=== PATIENT | female | born 1940 | race Caucasian/White ===

== ENCOUNTER 2022-12-03 09:40 | Emergency (ER) | payer MEDICARE, MEDICAID, SELFPAY ==
[2022-12-03] VITALS (48 sets, daily range): BP systolic 150–177; BP diastolic 83–107; PULSE 111–115; RESP 16–18; TEMP 36.5; O2SAT 94–100; BMI 24.7
--- NOTE | 2022-12-03 10:59 | XRR_ITS ---
PROCEDURE INFORMATION: Exam: XR Chest Exam date and time: 12/03/2022 11:18 AM Age: 82 years old Clinical indication: Cough and dyspnea; Additional info: Dyspnea/cough TECHNIQUE: Imaging protocol: Radiologic exam of the chest. Views: 1 view. COMPARISON: No relevant prior studies available. FINDINGS: Lungs: Unremarkable. No consolidation. Pleural spaces: Unremarkable. No pleural effusion. No pneumothorax. Heart/Mediastinum: Unremarkable. No cardiomegaly. Bones/joints: Mild degenerative changes along the spine and shoulders. XR/XR chest 1V portable [id number] IMPRESSION: No acute findings.
--- NOTE | 2022-12-03 10:59 | CTR_ITS ---
PROCEDURE INFORMATION: Exam: CT Head Without Contrast Exam date and time: 12/03/2022 11:34 AM Age: 82 years old Clinical indication: Altered mental status/memory loss; Additional info: Ams/falls TECHNIQUE: Imaging protocol: Computed tomography of the head without contrast. Radiation optimization: All CT scans at this facility use at least one of these dose optimization techniques: automated exposure control; mA and/or kV adjustment per patient size (includes targeted exams where dose is matched to clinical indication); or iterative reconstruction. REPORTING DATA: Count of CT and Cardiac NM exams in prior 12 months: This patient has received 0 known CTs and 0 known cardiac nuclear medicine studies in the 12 months prior to the current study. COMPARISON: No relevant prior studies available. RADIATION DOSE METRICS: Total DLP (mGy-cm): 1126.2 FINDINGS: Brain: Diffuse cerebral atrophy, consistent with patient's age. No hemorrhage. 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 Preserved padilla-white matter differentiation. Extensive cerebral white matter hypoattenuation likely on the basis of chronic microvascular ischemic change. No mass effect. Intracranial vascular calcifications. Cerebral ventricles: Ventricles are in proportion to the degree of atrophy. Paranasal sinuses: Visualized sinuses are unremarkable. No fluid levels. Mastoid air cells: Visualized mastoid air cells are well aerated. Bones/joints: Unremarkable. No acute fracture. Soft tissues: Unremarkable. CT/CT head wo con* [id number] IMPRESSION: 1. No acute intracranial findings. 2. Chronic right occipital lobe infarct in the setting of cerebral atrophy and diffuse chronic microvascular ischemic change.
--- NOTE | 2022-12-03 11:00 | ECG_ITS ---
[facility] Test Date: 2022-12-03 Pat Name: Chantal Saldana Department: Room: Gender: Female Director Machine: : 1940 Requested By: Rosalino Marquez Order Number: [id number] Estee MD: Sonia Mansfield M.D. Measurements Intervals [place] Rate: 108 P: 35 AK: 137 QRS: -3 QRSD: 96 T: 66 QT: 339 QTc: 455 Interpretive Statements SINUS TACHYCARDIA WITH OCCASIONAL VENTRICULAR PREMATURE COMPLEXES ABNORMAL RHYTHM ECG No previous ECG available for comparison Electronically Signed On 12-03-2022 11:09:45 CDT by Sonia Mansfield M.D. [id number]
--- NOTE | 2022-12-03 11:01 | W.ED.GENADLT ---
HPI - General Adult General: Chief complaint: Altered Mental Status Stated complaint: ams Time Seen by Provider: 12/03/22 09:45 Source: patient and family Mode of arrival: ambulatory History of Present Illness: 82-year-old female presents to the emergency room with her daughter in law. She recently moved to this area to stay with the [id number] and son. She had several falls she has a lot of sundowning and's worsening last week. Not strike her head no loss conscious no complaints chest pain fever sweats chills dysuria urgency frequency cough or shortness of breath. She is complaining of some mild back discomfort in the thoracolumbar junction region. No radicular symptoms Onset (ago): minute(s) Severity: moderate Relieving factors: none Exacerbating factors: none Associated symptoms: Deny chest pain, confusion, cough, diaphoresis, decreased appetite, dyspnea, fevers/chills, headache(s), malaise, nausea, rash, palpitations, seizures, short of breath, syncope, vomiting or weakness Review of Systems Const: Denies: fever(s), chills, malaise or diaphoresis Eyes: Denies: change in vision ENMT: Denies: throat pain or ear or mastoid pain Card: Denies: chest pain, palpitations or syncope Resp: Denies: dyspnea GI: Denies: abdominal pain, nausea or vomiting : Denies: flank pain, difficulty voiding, dysuria, urinary frequency or urinary urgency Musc: Reports: back pain; Denies: neck pain or extremity pain Skin/Breast: Denies: rash Neuro: Denies: headache(s) or confusion PFS ED PFSH: Medical History (Updated 12/03/22 @ 15:33 by Rosalino Ulrich DO) Dementia Diabetes mellitus Hypertension Physical Exam Const: GENERAL APPEARANCE: cooperative and comfortable ORIENTATION/CONSCIOUSNESS: Yes awake HENMT: COMMON NORMALS: normocephalic, atraumatic and hearing grossly normal bilaterally HEAD & SCALP: normocephalic and atraumatic Resp: COMMON NORMALS: normal respiratory effort, No retractions, No use of accessory muscles and clear to auscultation bilaterally AUSCULTATION: clear to auscultation bilaterally Cardio: COMMON NORMALS: regular rate, regular rhythm and No murmurs present (Cardio) RATE: regular rate RHYTHM: regular rhythm GI: COMMON NORMALS: Soft to palpation and No hepatosplenomegaly present AUSCULTATION: Yes normoactive bowel sounds PALPATION: Yes Soft to palpation, No Tenderness to palpation present (GI), No Guarding due to palpation present (GI) and Yes No hepatosplenomegaly present Extremity: COMMON NORMALS: normal to inspection, capillary refill normal, no clubbing, cyanosis or edema, no calf tenderness and no pedal edema Skin: COMMON NORMALS: no rashes or lesions noted GENERAL SKIN EXAM: no rashes or lesions noted Course Vital Signs: Vital signs: Vital Signs Temperature 97.7 F 12/03/22 09:48 Pulse Rate 111 H 12/03/22 11:14 Respiratory Rate 16 12/03/22 11:14 Blood Pressure 150/107 12/03/22 14:35 Pulse Oximetry 98 12/03/22 14:35 Oxygen Delivery Me thod Room Air 12/03/22 09:48 MDM - General Adult Medical Decision Making Labs and imaging reviewed. T12 compression fracture of uncertain age. She does have some mild discomfort there but is not to be appear to be acute based on her clinical complaint at this time. Delta troponin negative CT head negative EKG does not show any acute EKG changes. Up and ambulatory. Discussed with the caregiver that accompanies the patient. They are comfortable going home and did recommend trazodone 25 at at bedtime and will have her establish with a primary care doctor and referred to Ortho for the compression fracture. Return to the emergency room for his further problems. Suspect patient may need a higher level of care soon Medical Records I reviewed the patient's medical records. Lab Data I reviewed the patient's lab results. 12/03/22 11:11 12/03/22 11:11 Radiology Impressions Chest X-Ray 12/03/22 10:59 IMPRESSION: No acute findings. Head CT 12/03/22 10:59 IMPRESSION: 1. No acute intracranial findings. 2. Chronic right occipital lobe infarct in the setting of cerebral atrophy and diffuse chronic microvascular ischemic change. Lumbar Spine X-Ray 12/03/22 13:50 IMPRESSION: 1. Mild anterior compression deformity of the T12 vertebral body, age indeterminate. 2. Keer-jq-zwlkymhm multilevel degenerative changes. Thoracic Spine X-Ray 12/03/22 13:50 IMPRESSION: Age-indeterminate mild anterior compression deformity of the T12 vertebral body. Laboratory Results WBC 14.0 10^3/uL (4.0-10.0) H 12/03/22 11:11 RBC 4.42 10^6/uL (4.1-5.3) 12/03/22 11:11 Hgb 13.2 g/dL (11.5-15.3) 12/03/22 11:11 Hct 39.3 % (37.0-47.0) 12/03/22 11:11 MCV 88.9 fl (81-99) 12/03/22 11:11 MCH 29.9 pg (28.0-34.0) 12/03/22 11:11 MCHC 33.6 g/dL (30.0-36.0) 12/03/22 11:11 RDW 12.7 % (12.1-15.1) 12/03/22 11:11 Plt Count 325 10^3/cmm (130-400) 12/03/22 11:11 MPV 10.0 fL (7.4-10.4) 12/03/22 11:11 Neut % (Auto) 80.5 % 12/03/22 11:11 Lymph % (Auto) 10.9 % 12/03/22 11:11 [place] % (Auto) 7.5 % 12/03/22 11:11 Eos % (Auto) 0.1 % 12/03/22 11:11 Baso % (Auto) 0.3 % 12/03/22 11:11 Neut # (Auto) 11.25 10^3/uL (1.8-7.7) H 12/03/22 11:11 Lymph # (Auto) 1.5 10^3/uL (0.8-4.8) 12/03/22 11:11 [place] # (Auto) 1.1 10^3/uL (0.2-0.9) H 12/03/22 11:11 Eos # (Auto) 0.0 10^3/uL (0.0-0.8) 12/03/22 11:11 Baso # (Auto) 0.0 10^3/uL (0.0-0.1) 12/03/22 11:11 Nucleated RBC % (auto) 0 % 12/03/22 11:11 Nucleated RBCs # 0.0 /100WBC 12/03/22 11:11 Sodium 132 mmol/L (136-145) L 12/03/22 11:11 Potassium 4.7 mmol/L (3.5-5.1) 12/03/22 11:11 Chloride 95 mmol/L (98-107) L 12/03/22 11:11 Carbon Dioxide 21 mmol/L (22-29) L 12/03/22 11:11 Anion Gap 20.7 (5-19) H 12/03/22 11:11 BUN 18 mg/dL (8-23) 12/03/22 11:11 Creatinine 0.8 mg/dL (0.5-0.9) 12/03/22 11:11 GFR Calculation Not Reportable 12/03/22 11:11 Glucose 221 mg/dL (65-115) H 12/03/22 11:11 Calculated Osmolality 283 mOsm/kg (285-295) L 12/03/22 11:11 Calcium 9.5 mg/dL (8.5-10.5) 12/03/22 11:11 Magnesium 1.7 mg/dL (1.7-2.3) 12/03/22 11:11 Total Bilirubin 0.7 mg/dL (0.15-1.2) 12/03/22 11:11 AST 15 U/L (0-32) 12/03/22 11:11 ALT 17 U/L (0-33) 12/03/22 11:11 Alkaline Phosphatase 106 U/L (35-105) H 12/03/22 11:11 Creatine Kinase 146 U/L (26-192) 12/03/22 11:11 Troponin T Baseline 14 ng/L (0-10) H 12/03/22 11:11 Troponin T 120 Minute 12.15 ng/L (0-10) H 12/03/22 13:13 Delta Troponin T -1.85 ABS# (0-10) L 12/03/22 13:13 Total Protein 7.5 g/dL (6.6-8.7) 12/03/22 11:11 Albumin 4.4 g/dL (3.5-5.2) 12/03/22 11:11 Globulin 3.1 g/dL (1.3-4.6) 12/03/22 11:11 Urine Color Yellow (Yellow) 12/03/22 12:18 Urine Appearance Clear (CLEAR) 12/03/22 12:18 Urine pH 5 (5-7) 12/03/22 12:18 Ur Specific [place] 1.020 (1.005-1.030) 12/03/22 12:18 Urine Protein Trace (Negative) 12/03/22 12:18 Urine Glucose (UA) 1+ (Normal) H 12/03/22 12:18 Urine Ketones 3+ (Negative) H 12/03/22 12:18 Urine Blood Neg (Negative) 12/03/22 12:18 Urine Nitrate Negative (Negative) 12/03/22 12:18 Urine Bilirubin 1+ (Negative) H 12/03/22 12:18 Urine Urobilinogen 1 mg/dL (Negative) H 12/03/22 12:18 Ur Leukocyte Esterase Negative (Negative) 12/03/22 12:18 Urine RBC 0-4 /hpf (0-2) H 12/03/22 12:18 Urine WBC 0-4 /hpf (0-5) H 12/03/22 12:18 Ur Squamous Epith Cells 0-4 /hpf (0-5) H 12/03/22 12:18 Amorphous Sediment Not Reportable 12/03/22 12:18 Urine Bacteria 2+ /hpf (NONE) H 12/03/22 12:18 Urine Mucus 1+ /hpf 12/03/22 12:18 Discharge Plan Discharge Patient Disposition: Home Clinical Impression: Dementia, Compression fracture of T12 vertebra Condition: Stable Prescriptions: New trazodone 50 mg tablet 25 mg PO .qhs Qty: 30 0RF No Action metformin 500 mg tablet 1,000 mg PO BID simvastatin 40 mg tablet 40 mg PO BEDTIME famotidine 20 mg tablet 20 mg PO BID paroxetine HCl 20 mg tablet 20 mg PO BEDTIME lisinopril 40 mg tablet 40 mg PO BEDTIME Aleve 220 mg Tablet 220 mg PO BID PRN (Reason: Pain) Discharge Orders: Discharge ED (Routine); Ordered 12/03/22 Ordered By: Rosalino Ulrich Patient Instructions: Dementia (ED), Opioid Safety, Pain Management Activity Restrictions/Additional Instructions: Recommend starting trazodone 25 mg at bedtime. Case management will make arrangements for you to establish with a primary care doctor and to follow-up with orthopedic spine surgery regarding the compression fracture seen on your x-rays today. Coding Level of Care Code ED Foundation Maker for Dionne Abebe
[2022-12-03] MEDS: sodium chloride 0.9% 1,000 ML 999 ML IV (11:12)
[2022-12-03 11:16] LABS: Basophils % 0.3 %; Eosinophils % 0.1 %; Hematocrit 39.3 % (37.0-47.0); Hemoglobin 13.2 g/dL (11.5-15.3); Lymphocytes # 1.5 10^3/uL (0.8-4.8); Lymphocytes % 10.9 %; Mean Corpuscular HGB Conc 33.6 g/dL (30.0-36.0); Mean Corpuscular Hemoglobin 29.9 pg (28.0-34.0); Mean Corpuscular Volume 88.9 fl (81-99); Monocytes # 1.1 10^3/uL (0.2-0.9); Monocytes % 7.5 %; Neutrophils # 11.25 10^3/uL (1.8-7.7); Neutrophils % 80.5 %; Nucleated Red Blood Cells % 0 %; Platelet Count 325 10^3/cmm (130-400); Red Blood Count 4.42 10^6/uL (4.1-5.3); Red Cell Distribution Width 12.7 % (12.1-15.1)
[2022-12-03 11:37] LABS: Alanine Aminotransferase 17 U/L (0-33); Albumin Level 4.4 g/dL (3.5-5.2); Alkaline Phosphatase 106 U/L (35-105); Aspartate Amino Transferase 15 U/L (0-32); Blood Urea Nitrogen 18 mg/dL (8-23); Calcium 9.5 mg/dL (8.5-10.5); Carbon Dioxide 21 mmol/L (22-29); Chloride 95 mmol/L (98-107); Creatine Phosphokinase 146 U/L (26-192); Globulin 3.1 g/dL (1.3-4.6); Glucose 221 mg/dL (65-115); Magnesium 1.7 mg/dL (1.7-2.3); Osmolality Calculated 283 mOsm/kg (285-295); Sodium 132 mmol/L (136-145); Total Bilirubin 0.7 mg/dL (0.15-1.2); Total Protein 7.5 g/dL (6.6-8.7)
[2022-12-03 11:39] LABS: Troponin(5th) Baseline 14 ng/L (0-10)
[2022-12-03 11:41] LABS: Anion Gap 20.7 (5-19); Potassium 4.7 mmol/L (3.5-5.1)
[2022-12-03 12:59] LABS: Add Urine Microscopic? YES; Bacteria Urine 2+ /hpf; Bilirubin Urine 1+ (Negative); Blood Urine Neg (Negative); Glucose Urine UA 1+ (Normal); Ketones Urine 3+ (Negative); Leukocyte Esterase Urine Negative (Negative); Mucus Urine 1+ /hpf; Nitrate Urine Negative (Negative); Protein Urine Trace (Negative); RBC Urine 0-4 /hpf (0-2); Squamous Epithelial Cell Urine 0-4 /hpf (0-5); Urine Appearance Clear (CLEAR); Urine Color Yellow (Yellow); Urobilinogen Urine 1 mg/dL (Negative); WBC Urine 0-4 /hpf (0-5); pH Urine 5 (5-7)
[2022-12-03 13:00] LABS: Add Urine Culture? No
--- NOTE | 2022-12-03 13:05 | ECG_ITS ---
[facility] Test Date: 2022-12-03 Pat Name: Chantal Saldana Department: Room: Gender: Female Deli Department Manager: : 1940 Requested By: Rosalino Marquez Order Number: [id number] Estee MD: Sonia Mansfield M.D. Measurements Intervals [place] Rate: 99 P: 63 NV: 136 QRS: 1 QRSD: 98 T: 59 QT: 349 QTc: 448 Interpretive Statements SINUS RHYTHM MINIMAL ST DEPRESSION [0.025+ mV ST DEPRESSION] Compared to ECG 12/03/2022 11:08:34 ST (T wave) deviation now present Sinus tachycardia no longer present Ventricular premature complex(es) no longer present Electronically Signed On 12-03-2022 17:17:26 CDT by Sonia Mansfield M.D. [id number]
[2022-12-03 13:34] LABS: Troponin 5 2HR 12.15 ng/L (0-10)
[2022-12-03 13:35] LABS: Troponin 5 2HR Delta -1.85 ABS# (0-10)
--- NOTE | 2022-12-03 13:50 | XRR_ITS ---
PROCEDURE INFORMATION: Exam: XR Lumbosacral Spine Exam date and time: 12/03/2022 2:12 PM Age: 82 years old Clinical indication: Pain and injury or trauma; Blunt trauma (contusions or hematomas); Low back pain; Injury details: Dizziness and SOB since yesterday, AMS and falling frequently TECHNIQUE: Imaging protocol: Radiologic exam of the lumbosacral spine. Views: 2 or 3 views. COMPARISON: CR XR thoracic spine 3V* [id number] 12/03/2022 2:06 PM FINDINGS: Bones/joints: Mild anterior compression deformity of the T12 vertebral body. Normal spinal alignment. Pqsf-nz-jqnmylek discovertebral degenerative changes along the spine. Multilevel facet arthrosis greatest inferiorly. Soft tissues: Unremarkable. Vasculature: Systemic atherosclerotic calcification. XR/XR lumbar spine 2-3V* [id number] IMPRESSION: 1. Mild anterior compression deformity of the T12 vertebral body, age indeterminate. 2. Ygcs-za-vyghsepq multilevel degenerative changes.
--- NOTE | 2022-12-03 13:50 | XRR_ITS ---
PROCEDURE INFORMATION: Exam: XR Thoracic Spine Exam date and time: 12/03/2022 2:06 PM Age: 82 years old Clinical indication: Pain and injury or trauma; Blunt trauma (contusions or hematomas); Pain in thoracic spine; Injury details: Dizziness and SOB since yesterday, AMS and falling frequently TECHNIQUE: Imaging protocol: Radiologic exam of the thoracic spine. Views: 3 views. COMPARISON: CR XR chest 1V portable [id number] 12/03/2022 11:18 AM FINDINGS: Bones/joints: Mild anterior compression deformity of the T12 vertebral body. Normal spinal alignment. Mild degenerative changes along the spine. Soft tissues: Unremarkable. Vasculature: Aortic atherosclerotic calcification. XR/XR thoracic spine 3V* [id number] IMPRESSION: Age-indeterminate mild anterior compression deformity of the T12 vertebral body.
--- NOTE | 2022-12-04 08:47 | DCPLANNER ---
Addendum entered by Tiffani Jay 12/14/22 10:34: This appointment has been rescheduled Addendum entered by Tiffani Jay 12/12/22 13:10: Patient has a follow up appointment scheduled for November at 2:30 with Wilmer Estevez at ortho. Addendum entered by Tiffani Jay 12/04/22 11:54: counseling services manager received the following message from the ortho clinic regarding follow up appointment: attempt made to contact patient - left vm and will mail letter to call our clinic to schedule w/ dr leonardo or wilmer naranjo - can get in or next week Original Note: counseling services manager had message to schedule a follow up appointment for patient with ortho. counseling services manager sent patients information to the front office staff at ortho. Patients information will be printed and reviewed. Clinic will call patient with appointment information.
--- NOTE | 2022-12-04 11:31 | DCPLANNER ---
marketing communications manager had message to speak with patient about getting established with a primary care physician. marketing communications manager spoke with patients daughter in law who stated that patient will be seeing Abigail Bruce.
== END 2022-12-03 15:46 | disposition home or self-care (01) ==
PROVIDERS: Emergency Provider Family Medicine; PCP Nurse Practitioner Family
DX: F03.90 Unspecified dementia, unspecified severity, without behavioral disturbance, psychotic disturbance, mood disturbance, and anxiety (principal); Z79.84 Long term (current) use of oral hypoglycemic drugs; S22.080A Wedge compression fracture of T11-T12 vertebra, initial encounter for closed fracture; E11.9 Type 2 diabetes mellitus without complications; I10 Essential (primary) hypertension; W19.XXXA Unspecified fall, initial encounter
CPT/HCPCS: 36415; 70450; 71045; 72072; 72100; 80053; 81001; 82550; 83735; 84484; 85025; 93005; 99285; J7030

== ENCOUNTER → 2022-12-27 11:03 | Outpatient (BNVA) | payer MEDICARE, MEDICAID, SELFPAY | PROVIDERS: PCP Nurse Practitioner Family; Visit Provider Physician Assistant | DX: S22.080A Wedge compression fracture of T11-T12 vertebra, initial encounter for closed fracture (principal); X58.XXXA Exposure to other specified factors, initial encounter | CPT/HCPCS: 72080; 99203 ==

== ENCOUNTER 2023-01-24 12:32 | Observation (INO) | payer MEDICARE, MEDICAID, SELFPAY ==
[2023-01-24] VITALS (7 sets, daily range): BP systolic 119–172; BP diastolic 59–103; PULSE 71–109; RESP 15–17; TEMP 36.4–36.6; O2SAT 95–99; BMI 23.9
--- NOTE | 2023-01-24 13:10 | XR_ITS ---
WS: [id number] Right hip, 2 views, AP pelvis, 01/24/2023 Clinical Data: fall injury Comparison: None. Findings: No fractures or dislocations are seen. The right hip shows no erosion, sclerosis, narrowing or fragme ntation of the right femoral head. No right hip fracture is seen. The left hip is intact.. The soft t issues are not remarkable. The adjacent pelvis is normal. The SI joints and pubic symphysis show no abnormalities. Vascular calcification is seen. Impression: Negative pelvis and right hip.
--- NOTE | 2023-01-24 14:00 | PC.NURSE ---
nurse assumed care at 1400
[2023-01-24 14:34] LABS: Basophils % 0.3 %; Eosinophils # 0.1 10^3/uL (0.0-0.8); Eosinophils % 1.1 %; Hematocrit 37.4 % (36-47); Lymphocytes # 1.8 10^3/uL (0.8-4.8); Lymphocytes % 15.4 %; Mean Corpuscular HGB Conc 31.6 g/dL (30-55); Mean Corpuscular Hemoglobin 29.9 pg (27-33); Mean Corpuscular Volume 94.7 fl (85-98); Mean Platelet Volume 10.1 fL (7.4-10.4); Monocytes # 0.7 10^3/uL (0.2-0.9); Monocytes % 6.4 %; Neutrophils # 8.82 10^3/uL (1.8-7.7); Neutrophils % 76.5 %; Nucleated Red Blood Cells % 0 %; Platelet Count 243 10^3/cmm (157-399); Red Blood Count 3.95 10^6/uL (3.85-5.65); Red Cell Distribution Width 13.3 % (12.1-15.1); White Blood Count 11.54 10^3/uL (3.29-11.43)
[2023-01-24 14:41] LABS: Add Urine Microscopic? NO; Charge for UA Resulting for Rev
--- NOTE | 2023-01-24 14:43 | W.ED.SYNCOPE ---
HPI - Syncope General: Chief Complaint: Weakness Stated Complaint: hip pain on right side, dizzy Time Seen by Provider: 01/24/23 13:58 History of Present Illness: 82-year-old female with history of dementia was brought into emergency room with multiple falls within the past week. Daughter reveals that patient fell yesterday but denies any head injury or neck pain. Upon present emergency room patient is awake in no acute distress. Daughter is requesting for alf placement. Patient denies any chest pain, shortness of breath, diarrhea, bloody stool or dark stool. Associated symptoms: Deny abdominal pain, chest pain, lightheadedness or nausea Review of Systems General: Reports: 10 or more systems reviewed and unremarkable except in HPI and below Card: Denies: chest pain, palpitations, irregular heart rhythm, edema, swelling of feet/ankles or lightheadedness GI: Denies: abdominal pain, nausea, vomiting, hematemesis, coffee ground emesis, dysphagia, heartburn, early satiety or diarrhea : Denies: flank pain, difficulty voiding, dysuria, urinary frequency, urinary urgency, urinary hesitancy, dribbling or nocturia Skin/Breast: Denies: rash, pruritus, erythema or photosensitivity Neuro: Reports: frequent falls and behavioral changes; Denies: weakness in extremities, lack of coordination, difficulty walking, Slurred speech present, difficulty communicating thoughts, seizure-like activity or involuntary movements PFS ED PFSH: Medical History Dementia Diabetes mellitus Hypertension Physical Exam Const: COMMON NORMALS: no acute distress, alert and well nourished GENERAL APPEARANCE: cooperative and well developed; not in distress, not anxious, not combative, not disheveled and not lethargic NUTRITIONAL APPEARANCE: not cachectic, not thin and not underweight ORIENTATION/CONSCIOUSNESS: not lethargic HENMT: COMMON NORMALS: normocephalic, atraumatic, hearing grossly normal bilaterally, external ears normal, EAC's normal, TM's normal bilaterally, Normal external nose present, Normal nasal mucous membranes and turbinates present, moist oral mucous membranes, oropharynx normal, dentition normal and gingiva normal HEAD & SCALP: normocephalic and atraumatic NOSE: Normal external nose present and Normal nasal mucous membranes and turbinates present EXTERNAL EAR: Yes external ears normal EXTERNAL AUDITORY CANAL: EAC's normal TYMPANIC MEMBRANE: TM's normal bilaterally Neck/C-Spine: COMMON NORMALS: full ROM, no lymphadenopathy, supple, no meningeal signs, no JVD, Thyroid normal and No carotid bruits THYROID: Thyroid normal Resp: COMMON NORMALS: normal respiratory effort, No retractions, No use of accessory muscles, clear to auscultation bilaterally and percussion normal AUSCULTATION: clear to auscultation bilaterally PERCUSSION: percussion normal Cardio: COMMON NORMALS: no JVD, regular rate, regular rhythm, S1 normal heart sound present, S2 normal heart sound present, No gallops present (Cardio), No clicks present (Cardio), No murmurs present (Cardio), No rub (Cardio) and Peripheral pulses 2+ throughout RATE: regular rate RHYTHM: regular rhythm HEART SOUNDS: S1 normal heart sound present and S2 normal heart sound present PERIPHERAL PULSES: Peripheral pulses 2+ throughout GI: COMMON NORMALS: Normal to inspection, nondistended, normoactive bowel sounds present, Soft to palpation, non-tender, No hepatosplenomegaly present, no masses and no bruits PALPATION: Yes Soft to palpation and Yes No hepatosplenomegaly present : COMMON NORMALS: Yes no CVA tenderness BLADDER/KIDNEY EXAM: Yes no CVA tenderness Back/Pelvis: COMMON NORMALS: no CVA tenderness, thoracic and lumbar spine normal to inspection, no thoracic nor lumbar tenderness, thoraco-lumbar ROM normal and straight leg raise negative bilaterally Extremity: COMMON NORMALS: normal to inspection, full ROM, capillary refill normal, no joint enlargement, no clubbing, cyanosis or edema, no calf tenderness and no pedal edema Neuro: SENSORIUM/ORIENTATION: Yes alert and No lethargic MENINGEAL SIGNS: Yes no meningeal signs Course Vital Signs: Vital signs: Vital Signs Temperature 98.0 F 01/27/23 07:37 Pulse Rate 103 H 01/27/23 07:37 Respiratory Rate 17 01/27/23 07:37 Blood Pressure 160/89 01/27/23 07:37 Pulse Oximetry 95 01/27/23 07:37 Oxygen Delivery Me thod Room Air 01/26/23 21:19 MDM - Syncope Medical Decision Making Patient was made comfortable in the emergency room and had extensive work-up including CBC, CMP, UA and x-ray. I discussed all findings with daughter. Discussed patient with the hospitalist. Patient admitted for observation. Discussed patient with social service and she presented emergency room to evaluate patient. Recommended observation for possible alf placement. Differential Diagnosis Likely syncope due to orthostatic hypotension, vasovagal syncope, complete atrioventricular block, subarachnoid hemorrhage, pulmonary embolism and dehydration Lab Data 01/25/23 04:49 01/24/23 14:20 Radiology Impressions Chest X-Ray 01/24/23 15:34 IMPRESSION: Vague small fine linear opacities are seen in the periphery of the left lateral lower lung field possibly representing developing small infiltrates or areas of atelectasis. Otherwise unremarkable chest x-ray. Laboratory Results WBC 11.54 10^3/uL (3.29-11.43) H 01/24/23 14:20 RBC 3.95 10^6/uL (3.85-5.65) 01/24/23 14:20 Hgb 11.80 g/dL (11.27-16.99) 01/24/23 14:20 Hct 37.4 % (36-47) 01/24/23 14:20 MCV 94.7 fl (85-98) 01/24/23 14:20 MCH 29.9 pg (27-33) 01/24/23 14:20 MCHC 31.6 g/dL (30-55) 01/24/23 14:20 RDW 13.3 % (12.1-15.1) 01/24/23 14:20 Plt Count 243 10^3/cmm (157-399) 01/24/23 14:20 MPV 10.1 fL (7.4-10.4) 01/24/23 14:20 Neut % (Auto) 76.5 % 01/24/23 14:20 Lymph % (Auto) 15.4 % 01/24/23 14:20 [place] % (Auto) 6.4 % 01/24/23 14:20 Eos % (Auto) 1.1 % 01/24/23 14:20 Baso % (Auto) 0.3 % 01/24/23 14:20 Neut # (Auto) 8.82 10^3/uL (1.8-7.7) H 01/24/23 14:20 Lymph # (Auto) 1.8 10^3/uL (0.8-4.8) 01/24/23 14:20 [place] # (Auto) 0.7 10^3/uL (0.2-0.9) 01/24/23 14:20 Eos # (Auto) 0.1 10^3/uL (0.0-0.8) 01/24/23 14:20 Baso # (Auto) 0.0 10^3/uL (0.0-0.1) 01/24/23 14:20 Nucleated RBC % (auto) 0 % 01/24/23 14:20 Nucleated RBCs # 0.0 /100WBC 01/24/23 14:20 Sodium 137 mmol/L (136-145) 01/24/23 14:20 Potassium 4.7 mmol/L (3.5-5.1) 01/24/23 14:20 Chloride 101 mmol/L (98-107) 01/24/23 14:20 Carbon Dioxide 23 mmol/L (22-29) 01/24/23 14:20 Anion Gap 17.7 (5-19) 01/24/23 14:20 BUN 12 mg/dL (8-23) 01/24/23 14:20 Creatinine 0.5 mg/dL (0.5-0.9) 01/24/23 14:20 GFR Calculation Not Reportable 01/24/23 14:20 Glucose 144 mg/dL (65-115) H 01/24/23 14:20 Calculated Osmolality 286 mOsm/kg (285-295) 01/24/23 14:20 Calcium 9.0 mg/dL (8.5-10.5) 01/24/23 14:20 Total Bilirubin 0.5 mg/dL (0.15-1.2) 01/24/23 14:20 AST 18 U/L (0-32) 01/24/23 14:20 ALT 15 U/L (0-33) 01/24/23 14:20 Alkaline Phosphatase 89 U/L (35-105) 01/24/23 14:20 NT-Pro-B Natriuret Pep 503 pg/mL (0-450) H 01/24/23 14:20 Total Protein 7.1 g/dL (6.6-8.7) 01/24/23 14:20 Albumin 4.0 g/dL (3.5-5.2) 01/24/23 14:20 Globulin 3.1 g/dL (1.3-4.6) 01/24/23 14:20 TSH 0.83 uIU/mL (0.27-4.20) 01/24/23 14:20 Urine Color Yellow (Yellow) 01/24/23 13:04 Urine Appearance Clear (CLEAR) 01/24/23 13:04 Urine pH 5 (5-7) 01/24/23 13:04 Ur Specific [place] 1.015 (1.005-1.030) 01/24/23 13:04 Urine Protein Neg (Negative) 01/24/23 13:04 Urine Glucose (UA) Norm (Normal) 01/24/23 13:04 Urine Ketones 1+ (Negative) H 01/24/23 13:04 Urine Blood Neg (Negative) 01/24/23 13:04 Urine Nitrate Negative (Negative) 01/24/23 13:04 Urine Bilirubin Neg (Negative) 01/24/23 13:04 Urine Urobilinogen Norm mg/dL (Negative) 01/24/23 13:04 Ur Leukocyte Esterase Negative (Negative) 01/24/23 13:04 XR interpretation done by ED provider, pending radiology final review Discharge Plan Discharge Patient Disposition: Placed in Observation Admit Provider: Pedro Corrales Clinical Impression: Dementia, Hypertension, Fall Coding Level of Care Code ED Plating Tank Operator for Dionne Abebe
[2023-01-24 14:47] LABS: Alanine Aminotransferase 15 U/L (0-33); Alkaline Phosphatase 89 U/L (35-105); Anion Gap 17.7 (5-19); Aspartate Amino Transferase 18 U/L (0-32); Blood Urea Nitrogen 12 mg/dL (8-23); Carbon Dioxide 23 mmol/L (22-29); Chloride 101 mmol/L (98-107); Globulin 3.1 g/dL (1.3-4.6); Glucose 144 mg/dL (65-115); Osmolality Calculated 286 mOsm/kg (285-295); Potassium 4.7 mmol/L (3.5-5.1); Sodium 137 mmol/L (136-145); Total Bilirubin 0.5 mg/dL (0.15-1.2); Total Protein 7.1 g/dL (6.6-8.7)
[2023-01-24 14:50] LABS: Urine Appearance Clear (CLEAR); Urine Color Yellow (Yellow); pH Urine 5 (5-7)
[2023-01-24 14:51] LABS: Bilirubin Urine Neg (Negative); Blood Urine Neg (Negative); Glucose Urine UA Norm (Normal); Ketones Urine 1+ (Negative); Leukocyte Esterase Urine Negative (Negative); Nitrate Urine Negative (Negative); Protein Urine Neg (Negative); Specific Gravity, Urine 1.015 (1.005-1.030); Urobilinogen Urine Norm (Negative)
--- NOTE | 2023-01-24 15:34 | XRR_ITS ---
PROCEDURE INFORMATION: Exam: XR Chest Exam date and time: 01/24/2023 4:01 PM Age: 82 years old Clinical indication: Shortness of breath; Additional info: SOB TECHNIQUE: Imaging protocol: Radiologic exam of the chest. Views: 1 view. COMPARISON: CR XR chest 1V portable [id number] 12/03/2022 11:18 AM FINDINGS: Lungs: Vague small fine linear opacities are seen in the periphery of the left lateral lower lung field possibly representing developing small infiltrates or areas of atelectasis. Pleural spaces: Unremarkable. No pleural effusion. No pneumothorax. Heart/Mediastinum: Unremarkable. No cardiomegaly. Bones/joints: Unremarkable. XR/XR chest 1V portable [id number] IMPRESSION: Vague small fine linear opacities are seen in the periphery of the left lateral lower lung field possibly representing developing small infiltrates or areas of atelectasis. Otherwise unremarkable chest x-ray.
[2023-01-24 17:28] LABS: NT Pro B Type Natriuretic Pept 503 pg/mL (0-450)
--- NOTE | 2023-01-24 18:35 | PM.HP ---
Providers/Chief Complaint Admitting Physician: Pedro Corrales Primary Care Provider: JANETH Lopez Chief Complaint: hip pain on right side, dizzy History of Present Illness Chantal Saldana is a 82 year old female with history of dementia, hypertension, living at home with her daughter in law has had progressive functional decline recently, has also had more frequent falls with some skin tears, abrasions including on her right elbow, forearm, is brought for evaluation due to the above as well as due to progressive difficulty of managing her needs at home. Has had some mild cough. Blood pressures have been high recently as well, was previously on 40 mg of lisinopril, however, this was cut down after she was dehydrated, with low blood pressure, subsequently restarted at lower dose of 5 mg every evening on which she is currently. She does not use any assistive devices for ambulation at home. She does not always recognize those around her, though it seems may no relatives, sometimes forgets that some of the relatives are . He does not know the month or year. Does not know her current location. Has been having difficulties dressing herself. Review of Systems Const: Denies: fever(s), chills, body aches or malaise ENMT: Denies: throat pain Card: Denies: chest pain, edema, pre-syncope or dyspnea on exertion Resp: Denies: dyspnea, productive cough, change in phlegm color or hemoptysis GI: Denies: abdominal pain, nausea, vomiting, diarrhea, constipation, hematochezia or melena : Denies: flank pain, urinary frequency or hematuria Musc: Denies: back pain, joint swelling or joint redness Skin/Breast: Denies: rash or new lesions Neuro: Denies: headache(s), numbness in extremities, weakness in extremities or dizziness Medications/Allergies Home Medications Medication Instructions Recorded Confirmed Last Taken Type famotidine 20 mg tablet 20 mg PO BID 12/03/22 01/24/23 01/24/23 History metformin 500 mg tablet 1,000 mg PO BID 12/03/22 01/24/23 01/24/23 History naproxen sodium 220 mg tablet 220 mg PO BID PRN Pain 12/03/22 01/24/23 12/02/22 History (Aleve) simvastatin 40 mg tablet 40 mg PO BEDTIME 08/01/24/23 01/23/23 History lisinopril 5 mg tablet 5 mg PO QPM 01/24/23 01/24/23 01/23/23 History paroxetine HCl 40 mg tablet 40 mg PO QAM 01/24/23 01/24/23 01/24/23 History Allergies Allergy/AdvReac Type Severity Reaction Status Date / Time No Known Allergies Allergy Verified 12/27/22 10:37 PFSH Acute PFSH: Medical History Dementia Diabetes mellitus Hypertension Vitals/I&O/Wt Last Vital Signs Temp 97.8 F 01/24/23 12:38 Pulse 76 01/24/23 17:13 Resp 16 01/24/23 12:38 BP 172/101 01/24/23 17:13 Pulse Ox 95 01/24/23 17:13 O2 Del Method Room Air 01/24/23 17:13 Weight last 48 hrs Weight 61.235 kg Physical Exam Narrative: Accompanied by her [id number]. Const: COMMON NORMALS: alert GENERAL APPEARANCE: cooperative ORIENTATION/CONSCIOUSNESS: Yes awake, Yes oriented to person and Yes oriented to place HENMT: COMMON NORMALS: oropharynx normal Neck/C-Spine: COMMON NORMALS: no JVD Resp: COMMON NORMALS: normal respiratory effort and clear to auscultation bilaterally AUSCULTATION: clear to auscultation bilaterally Cardio: COMMON NORMALS: no JVD, regular rhythm, S1 normal heart sound present, S2 normal heart sound present and No murmurs present (Cardio) RHYTHM: regular rhythm HEART SOUNDS: S1 normal heart sound present and S2 normal heart sound present GI: COMMON NORMALS: Normal to inspection, nondistended, normoactive bowel sounds present, Soft to palpation and non-tender PALPATION: Yes Soft to palpation Extremity: COMMON NORMALS: no joint enlargement and no pedal edema Neuro: COMMON NORMALS: patient oriented x3 and moves all extremities SENSORIUM/ORIENTATION: Yes alert Skin: WOUNDS: Yes wounds noted (skin tears, abrasions. R elbow, forearm. Stero-strips in place. Dried escha) Data 01/24/23 14:20 01/24/23 14:20 A&P Assessment and plan (1) Declining functional status: History had to be obtained from her [id number]. Progressively declining functional status. Worsened by more frequent falls. Has been having difficulties dressing at home (, needing assistance with activities of daily living at home. Increasing difficulties with managing things at home. Arrangements have been underway for her to go to shelter, and placement was attempted from ER, however, could not be completed. employment services director on board, will place consultation. Reviewed CBC, noted mild leukocytosis, possibly secondary to skin tears, falls. Otherwise no infection around the wound. No cellulitis. Reviewed UA, reviewed chest x-ray. Chest x-ray pending official read, my interpretation without sign of pneumonia or acute infectious process. UA unremarkable. She has been having some mild dry cough, will check COVID-19 PCR. Check TSH. Electrolytes reviewed, sodium WNL, renal function unremarkable. Reviewed hip/pelvis x-ray. Would benefit from better blood pressure control. ER physician note reviewed. Discussed with ER physician. (2) Falls: Increasing frequency of falls. Maintain fall precautions. Additional work-up as above. Case management consultation requested (3) Hypertension: Worsening hypertension recently. Previously her lisinopril was de-escalated after dehydration, low blood pressure, recently restarted at lower dose of 5 mg. We will per discussion increase up to 10 mg, monitor blood pressure. Cardiac diet. (4) Diabetes mellitus: On metformin at home, does cause some loose stools sometimes for her. Hold oral hypoglycemic in the hospital. mild sliding scale insulin, although she may not allow for it per [id number]. Monitor Accu-Cheks consistent carbohydrate diet. (5) Dementia: Plan Goals of care discussion: [id number] is DPOA. DNR - no cardiopulmonary resuscitation in case of cardiopulmonary arrest per prior wishes. Attestations Medical Necessity Statement*: Place in observation for additional assessment and management of functional decline, more frequent falls, optimization of blood sugar control with poorly controlled hypertension, arrangements for placement. Diagnoses Declining functional status R53.81 Falls W19.XXXA Hypertension I10 Diabetes mellitus E11.9 Dementia F03.90
[2023-01-24 19:58] LABS: Thyroid Stimulating Hormone 0.83 uIU/mL (0.27-4.20)
[2023-01-24 20:36] LABS: Glucose Point of Care 110 mg/dL (70-110)
[2023-01-24] MEDS: atorvastatin 40 mg Tablet 20 MG PO (22:46)
[2023-01-25 03:46] VITALS: BP 159/84; PULSE 91; RESP 13; TEMP 36.4; O2SAT 95
[2023-01-25 05:11] LABS: Basophils % 0.4 %; Eosinophils # 0.2 10^3/uL (0.0-0.8); Eosinophils % 3.5 %; Hematocrit 34.8 % (36-47); Lymphocytes # 1.9 10^3/uL (0.8-4.8); Lymphocytes % 28.4 %; Mean Corpuscular HGB Conc 32.2 g/dL (30-55); Mean Corpuscular Hemoglobin 30.2 pg (27-33); Mean Corpuscular Volume 93.8 fl (85-98); Monocytes # 0.7 10^3/uL (0.2-0.9); Monocytes % 9.7 %; Neutrophils # 3.91 10^3/uL (1.8-7.7); Neutrophils % 57.6 %; Nucleated Red Blood Cells % 0 %; Platelet Count 239 10^3/cmm (157-399); Red Blood Count 3.71 10^6/uL (3.85-5.65); Red Cell Distribution Width 13.4 % (12.1-15.1)
[2023-01-25] MEDS: PARoxetine 20 mg Tablet 40 MG PO (06:13)
[2023-01-25 06:29] LABS: Glucose Point of Care 150 mg/dL (70-110)
[2023-01-25 08:00] VITALS: BP 152/91; PULSE 102; RESP 17; TEMP 36.6; O2SAT 95
[2023-01-25 08:33] LABS: Adenovirus Not Detected (NOT DETECT); Chlamydia Pneumoniae Not Detected (NOT DETECT); Coronavirus 229E,HKU1,NL63,OC4 Not Detected (NOT DETECT); Human Metapneumovirus Not Detected (NOT DETECT); Human Rhinovirus/Enterovirus Not Detected (NOT DETECT); Influenza A Not Detected (NOT DETECT); Influenza A H1 Not Detected (NOT DETECT); Influenza A H1-2009 Not Detected (NOT DETECT); Influenza A H3 Not Detected (NOT DETECT); Influenza B Not Detected (NOT DETECT); Mycoplasma Pneumoniae Not Detected (NOT DETECT); Parainfluenza Virus Type 1 Not Detected (NOT DETECT); Parainfluenza Virus Type 2 Not Detected (NOT DETECT); Parainfluenza Virus Type 3 Not Detected (NOT DETECT); Parainfluenza Virus Type 4 Not Detected (NOT DETECT); Respiratory Syncytial Virus A Not Detected (NOT DETECT); Respiratory Syncytial Virus B Not Detected (NOT DETECT); SARS-COV-2 Not Detected (NOT DETECT)
[2023-01-25] MEDS: insulin lispro 100 unit/1 mL SUBCUT (09:01)
[2023-01-25] MEDS: famotidine 20 mg Tablet PO (09:02)
--- NOTE | 2023-01-25 09:30 | PC.CHAP ---
Pastoral Care Encounter/Spiritual Assessment Type of Contact [] Declined assistant at surgery visit [] Patient/Family/Request visit [] Outpatient visit [] Follow-up visit [] Physician referral [] Code/Alert [x] Routine visit [] Staff referral [] Actively dying [] Patient sleeping [] Family support [] [] Out of room [] Palliative care [] [] Receiving care in room [] Pre-surgical visit [] Trauma [] Long length of stay [] ICU visit [] Other: Relational/Emotional Strength [x] Patient feels connected with others/family/visitors/staff [] Distress [] Loneliness/isolation [] Abandonment Spirituality of Patient [x] Person of Aster [] Attends Religion of their Aster [x] Believes in Prayer [] Reads Bible or Jewish materials [] There are Spiritual issues to be addressed Dike Supervisor Interventions [x] Prayer [] Active listening [] Non-anxious presence [x] Spiritual/emotional support [] Crisis/trauma care [] Spiritual counseling [] Bereavement support [] Provided bereavement packet [] Provided Bible/devotional materials [] Provided toy/stuffed animal, coloring book to patient or family member [] Provided Communion [] Anointing/[place] [] Salvation [x] Completed spiritual assessment [] Other: Impact on Illness or Injury [] Angry [] Fearful [] Anxious [] Often cries [] Exhaustion [] Unable to work [] Unable to attend pentecostalism [] Unable to walk/stand [] Unable to read [] Unable to drive [] Unable to eat/drink [] Unable to sleep [] Unable to be with family [] Patient intubated [] Other: Summary Time spent with patient 5 min
[2023-01-25 11:23] LABS: Glucose Point of Care 204 mg/dL (70-110)
[2023-01-25 12:00] VITALS: BP 128/80; PULSE 65; RESP 19; TEMP 36.4; O2SAT 94
--- NOTE | 2023-01-25 12:06 | PC.NURSE ---
Patient refused lunchtime insulin, this nurse educated patient about importance of glucose control. Patient unreceptive to education and appears to be very anxious wanting to go home. This nurse notified MD. No new orders at this time. No further concerns at this time.
[2023-01-25 16:00] VITALS: BP 150/89; PULSE 107; RESP 18; TEMP 36.6; O2SAT 96
[2023-01-25 17:43] LABS: Glucose Point of Care 184 mg/dL (70-110)
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
[2023-01-25] MEDS: haloperidol inj 5 mg/mL INJ 1 mL 1 MG IM (19:31)
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
--- NOTE | 2023-01-25 22:00 | PC.NURSE ---
Pt refused oral medications and IM insulin, attempted to reorient pt and educate pt. Pt appears very confused and states we are trying to kill her.
[2023-01-25] MEDS: LORazepam 2 mg/mL INJ 1 mL 0.5 MG IM (22:07)
[2023-01-26 06:00] VITALS: BP 160/88; PULSE 97; RESP 16; TEMP 36.6; O2SAT 94
[2023-01-26 06:29] LABS: Glucose Point of Care 155 mg/dL (70-110)
[2023-01-26 07:32] VITALS: BP 181/79; PULSE 99; RESP 18; O2SAT 97
[2023-01-26] MEDS: famotidine 20 mg Tablet PO ×2 (08:48→17:50)
[2023-01-26] MEDS: insulin lispro 100 unit/1 mL SUBCUT ×4 (08:48→21:16)
[2023-01-26 11:01] LABS: Glucose Point of Care 182 mg/dL (70-110)
[2023-01-26 11:29] VITALS: BP 130/78; PULSE 104; RESP 16; TEMP 36.4; O2SAT 93
--- NOTE | 2023-01-26 12:31 | PM.PN ---
Subjective Subjective: Napping at the time of my visit. Wakes up easily to voice. Denies pain or discomfort. Denies any needs Vitals/I&O/Wt Last Vital Signs Temp 97.6 F 01/26/23 11:29 Pulse 104 H 01/26/23 11:29 Resp 16 01/26/23 11:29 BP 130/78 01/26/23 11:29 Pulse Ox 93 01/26/23 11:29 O2 Del Method Room Air 01/26/23 11:29 01/25/23 01/26/23 01/26/23 22:59 06:59 14:59 Intake Total 120 / 480 0 / 480 240 / 240 Balance 120 / 480 0 / 480 240 / 240 Weight last 48 hrs Weight 61.235 kg Physical Exam Const: GENERAL APPEARANCE: cooperative ORIENTATION/CONSCIOUSNESS: Yes oriented to person; not oriented to place HENMT: COMMON NORMALS: oropharynx normal Neck/C-Spine: COMMON NORMALS: no JVD Resp: COMMON NORMALS: normal respiratory effort and clear to auscultation bilaterally AUSCULTATION: clear to auscultation bilaterally Cardio: COMMON NORMALS: no JVD, regular rhythm, S1 normal heart sound present, S2 normal heart sound present and No murmurs present (Cardio) RHYTHM: regular rhythm HEART SOUNDS: S1 normal heart sound present and S2 normal heart sound present GI: COMMON NORMALS: Normal to inspection, nondistended, normoactive bowel sounds present, Soft to palpation and non-tender PALPATION: Yes Soft to palpation Extremity: COMMON NORMALS: no joint enlargement and no pedal edema Neuro: COMMON NORMALS: moves all extremities SENSORIUM/ORIENTATION: Yes oriented to person and No oriented to place Skin: WOUNDS: Yes wounds noted (skin tears, abrasions. R elbow, forearm. Stero-strips in place. Dried escha) Data 01/25/23 04:49 01/24/23 14:20 A&P Assessment and plan (1) Declining functional status: Appears to be doing better today. She is doing well so far this morning per discussion with her sitter. Continue nightly low-dose quetiapine. Continue to monitor condition. If agitation with ing and declines p.o. quetiapine may have to give IM. Pending placement to SNF as per discussion with geriatric case manager. Reviewed case management note, pending authorization. Long-term would benefit from better control. (2) Falls: Increasing frequency of falls. Maintain fall precautions. (3) Hypertension: Blood pressure not optimally controlled. She had previously declined medication. We will see if if will allow for tonight. Continue lisinopril at 10 mg. Cardiac diet. (4) Diabetes mellitus: Has now allowed for insulin. Reviewed Accu-Cheks. On metformin at home, does cause some loose stools sometimes for her. Hold oral hypoglycemic in the hospital. mild sliding scale insulin, although she may not allow for it per [id number]. Monitor Accu-Cheks consistent carbohydrate diet. (5) Dementia: Plan Goals of care discussion: Jltnzfwk-ov-aee is DPOA. DNR - no cardiopulmonary resuscitation in case of cardiopulmonary arrest per prior wishes. Attestations Medical Necessity Statement*: Continue hospitalization for additional assessment and management of functional decline, more frequent falls, optimization of blood sugar control with poorly controlled hypertension, arrangements for placement. Diagnoses Declining functional status R53.81 Falls [id number].XXXA Hypertension I10 Diabetes mellitus E11.9 Dementia F03.90
[2023-01-26 14:56] VITALS: BP 144/82; PULSE 104; RESP 18; TEMP 36.7; O2SAT 95
[2023-01-26 17:16] LABS: Glucose Point of Care 148 mg/dL (70-110)
[2023-01-26] MEDS: lisinopril 5 mg Tablet 10 MG PO (17:50)
[2023-01-26] MEDS: atorvastatin 40 mg Tablet 20 MG PO (20:51)
[2023-01-26] MEDS: quetiapine 25 mg Tablet PO (20:51)
[2023-01-26 21:02] LABS: Glucose Point of Care 190 mg/dL (70-110)
[2023-01-26 21:05] VITALS: PULSE 94; RESP 18; O2SAT 95
[2023-01-26 21:19] VITALS: BP 152/87; PULSE 98; RESP 16; TEMP 36.7; O2SAT 95
[2023-01-27] MEDS: PARoxetine 20 mg Tablet 40 MG PO (05:41)
[2023-01-27 06:29] LABS: Glucose Point of Care 119 mg/dL (70-110)
[2023-01-27 07:37] VITALS: BP 160/89; PULSE 103; RESP 17; TEMP 36.7; O2SAT 95
[2023-01-27] MEDS: famotidine 20 mg Tablet PO (08:09)
[2023-01-27 10:52] LABS: Glucose Point of Care 239 mg/dL (70-110)
--- NOTE | 2023-01-27 11:22 | P.DS_ITS ---
Discharge Providers Date of Admission: 01/24/23 17:47 Date of Discharge: January 27, 2023 Attending Provider at Admission: Pedro Corrales Attending Provider at Discharge: Pedro Corrales Primary Care Provider: JANETH Lopez Diagnoses at Discharge Discharge Diagnosis (1) Declining functional status: Status: Acute (2) Falls: Status: Acute (3) Hypertension: Status: Acute (4) Diabetes mellitus: Status: Acute (5) Dementia: Status: Acute Reason for Visit Reason for Visit: hip pain on right side, dizzy Brief History: Chantal Saldana is a 82 year old female with history of dementia, hypertension, living at home with her daughter in law has had progressive functional decline recently, has also had more frequent falls with some skin tears, abrasions including on her right elbow, forearm, is brought for evaluation due to the above as well as due to progressive difficulty of managing her needs at home.? Has had some mild cough.? Blood pressures have been high recently as well, was previously on 40 mg of lisinopril, however, this was cut down after she was dehydrated, with low blood pressure, subsequently restarted at lower dose of 5 mg every evening on which she is currently. She does not use any assistive devices for ambulation at home.? She does not always recognize those around her, though it seems may no relatives, sometimes forgets that some of the relatives are .? He does not know the month or year.? Does not know her current location.? Has been having difficulties dr dotson herself. Hospital Course Hospital Course She was not found to have evidence of acute infection. Urine is suggestive of UTI. COVID-19 PCR panel was negative. TSH WNL. Mild leukocytosis resolved the next day. Abrasions/skin tears on the elbow have been healing. She had confused, with some paranoid ideation, wondering, had to be started on Seroquel. This is continued at this time. Different options were given consider post discharge, initially arrangements underway for [facility] placement, but family decided for her to still return home for the time being. Physical Exam Const: COMMON NORMALS: patient oriented x3 and alert GENERAL APPEARANCE: cooperative ORIENTATION/CONSCIOUSNESS: Yes awake and Yes oriented to person; not oriented to place HENMT: COMMON NORMALS: oropharynx normal Neck/C-Spine: COMMON NORMALS: no JVD Resp: COMMON NORMALS: normal respiratory effort and clear to auscultation bilaterally AUSCULTATION: clear to auscultation bilaterally Cardio: COMMON NORMALS: no JVD, regular rhythm, S1 normal heart sound present, S2 normal heart sound present and No murmurs present (Cardio) RHYTHM: regular rhythm HEART SOUNDS: S1 normal heart sound present and S2 normal heart sound present GI: COMMON NORMALS: Normal to inspection, nondistended, normoactive bowel sounds present, Soft to palpation and non-tender PALPATION: Yes Soft to palpation Extremity: COMMON NORMALS: no joint enlargement and no pedal edema Neuro: COMMON NORMALS: patient oriented x3 and moves all extremities SENSORIUM/ORIENTATION: Yes alert, Yes oriented to person and No oriented to place Skin: WOUNDS: Yes wounds noted (skin tears, abrasions. R elbow, forearm. Stero-strips in place. Dried escha) Discharge Data Studies Completed and Pending Completed Studies During Hospitalization Category Date Time Status XR chest 1V portable [id number] Stat Exams 01/24/23 15:34 Completed XR hip RT 2-3V wo/w pel* [id number] Stat Exams 01/24/23 13:10 Completed Radiology Impressions Chest X-Ray 01/24/23 15:34 IMPRESSION: Vague small fine linear opacities are seen in the periphery of the left lateral lower lung field possibly representing developing small infiltrates or areas of atelectasis. Otherwise unremarkable chest x-ray. Laboratory Results WBC 6.80 10^3/uL (3.29-11.43) 01/25/23 04:49 RBC 3.71 10^6/uL (3.85-5.65) L 01/25/23 04:49 Hgb 11.20 g/dL (11.27-16.99) L 01/25/23 04:49 Hct 34.8 % (36-47) L 01/25/23 04:49 MCV 93.8 fl (85-98) 01/25/23 04:49 MCH 30.2 pg (27-33) 01/25/23 04:49 MCHC 32.2 g/dL (30-55) 01/25/23 04:49 RDW 13.4 % (12.1-15.1) 01/25/23 04:49 Plt Count 239 10^3/cmm (157-399) 01/25/23 04:49 MPV 10.0 fL (7.4-10.4) 01/25/23 04:49 Neut % (Auto) 57.6 % 01/25/23 04:49 Lymph % (Auto) 28.4 % 01/25/23 04:49 [place] % (Auto) 9.7 % 01/25/23 04:49 Eos % (Auto) 3.5 % 01/25/23 04:49 Baso % (Auto) 0.4 % 01/25/23 04:49 Neut # (Auto) 3.91 10^3/uL (1.8-7.7) 01/25/23 04:49 Lymph # (Auto) 1.9 10^3/uL (0.8-4.8) 01/25/23 04:49 [place] # (Auto) 0.7 10^3/uL (0.2-0.9) 01/25/23 04:49 Eos # (Auto) 0.2 10^3/uL (0.0-0.8) 01/25/23 04:49 Baso # (Auto) 0.0 10^3/uL (0.0-0.1) 01/25/23 04:49 Nucleated RBC % (auto) 0 % 01/25/23 04:49 Nucleated RBCs # 0.0 /100WBC 01/25/23 04:49 Sodium 137 mmol/L (136-145) 01/24/23 14:20 Potassium 4.7 mmol/L (3.5-5.1) 01/24/23 14:20 Chloride 101 mmol/L (98-107) 01/24/23 14:20 Carbon Dioxide 23 mmol/L (22-29) 01/24/23 14:20 Anion Gap 17.7 (5-19) 01/24/23 14:20 BUN 12 mg/dL (8-23) 01/24/23 14:20 Creatinine 0.5 mg/dL (0.5-0.9) 01/24/23 14:20 GFR Calculation Not Reportable 01/24/23 14:20 Glucose 144 mg/dL (65-115) H 01/24/23 14:20 POC Glucose 239 mg/dL (70-110) H 01/27/23 10:46 Calculated Osmolality 286 mOsm/kg (285-295) 01/24/23 14:20 Calcium 9.0 mg/dL (8.5-10.5) 01/24/23 14:20 Total Bilirubin 0.5 mg/dL (0.15-1.2) 01/24/23 14:20 AST 18 U/L (0-32) 01/24/23 14:20 ALT 15 U/L (0-33) 01/24/23 14:20 Alkaline Phosphatase 89 U/L (35-105) 01/24/23 14:20 NT-Pro-B Natriuret Pep 503 pg/mL (0-450) H 01/24/23 14:20 Total Protein 7.1 g/dL (6.6-8.7) 01/24/23 14:20 Albumin 4.0 g/dL (3.5-5.2) 01/24/23 14:20 Globulin 3.1 g/dL (1.3-4.6) 01/24/23 14:20 TSH 0.83 uIU/mL (0.27-4.20) 01/24/23 14:20 Urine Color Yellow (Yellow) 01/24/23 13:04 Urine Appearance Clear (CLEAR) 01/24/23 13:04 Urine pH 5 (5-7) 01/24/23 13:04 Ur Specific [place] 1.015 (1.005-1.030) 01/24/23 13:04 Urine Protein Neg (Negative) 01/24/23 13:04 Urine Glucose (UA) Norm (Normal) 01/24/23 13:04 Urine Ketones 1+ (Negative) H 01/24/23 13:04 Urine Blood Neg (Negative) 01/24/23 13:04 Urine Nitrate Negative (Negative) 01/24/23 13:04 Urine Bilirubin Neg (Negative) 01/24/23 13:04 Urine Urobilinogen Norm mg/dL (Negative) 01/24/23 13:04 Ur Leukocyte Esterase Negative (Negative) 01/24/23 13:04 Coronavirus 229E (PCR) Not detected (NOT DETECT) 01/25/23 06:43 SARS-CoV-2 (PCR) Not detected (NOT DETECT) 01/25/23 06:43 Vitals Last Vital Signs Temp 98.0 F 01/27/23 07:37 Pulse 103 H 01/27/23 07:37 Resp 17 01/27/23 07:37 BP 160/89 01/27/23 07:37 Pulse Ox 95 01/27/23 07:37 O2 Del Method Room Air 01/26/23 21:19 Discharge Plan Discharge Patient Disposition: Home Condition: Stable Prescriptions: New quetiapine 25 mg Tablet 25 mg PO BEDTIME Qty: 30 2RF Continued metformin 500 mg tablet 1,000 mg PO BID simvastatin 40 mg tablet 40 mg PO BEDTIME famotidine 20 mg tablet 20 mg PO BID naproxen sodium [Aleve] 220 mg Tablet 220 mg PO BID PRN (Reason: Pain) lisinopril 5 mg tablet 5 mg PO QPM paroxetine HCl 40 mg tablet 40 mg PO QAM Discharge Orders: Discharge Order (Routine); Ordered 01/27/23 Ordered By: Pedro Corrales Referrals: Abigail Bruce FNP [Primary Care Provider] - 1 week (Please call Saturday to schedule an appointment with Abigail Bruce.) Discharge Diet: Cardiac and Diabetic Patient Instructions: Quetiapine (By mouth), Dementia (ED), Hypertension (GEN), Fall Prevention (GEN), Decubitus Ulcers Activity Restrictions/Additional Instructions: Continue to monitor blood pressure twice daily. Continue to optimize blood pressures, target 130/80. Return in case of any worsening or new concerning symptoms. Continue to reposition, wound care for decubitus sore and continue nutritional supplements. Discharge Attestations Time Spent in Discharge Care*: greater than 30 min Quality Metrics Clinical Quality Measures [ No reported AMI, CVA or VTE this stay] Coding Level of Care Code 10470 Total time (in minutes) for Discharge: 35 Diagnoses Declining functional status R53.81 Falls W19.XXXA Hypertension I10 Diabetes mellitus E11.9 Dementia F03.90
[2023-01-27 14:25] VITALS: BP 160/89; PULSE 99; RESP 17; TEMP 36.7; O2SAT 95
--- NOTE | 2023-01-27 14:27 | PC.NURSE ---
IV removed intact. Patient tolerated well. Discharge instructions revived with patient's daughter in law Reny. Reny verbalized understanding of medications. Patient assisted into wheel chair and pushed to private car
== END 2023-01-27 14:32 | disposition home or self-care (01) ==
LOC: ER 16:26 → MEDSURG 17:48
PROVIDERS: Nurse Practitioner Family; Admitting Provider Internal Medicine; Emergency Provider Family Medicine; PCP Nurse Practitioner Family; Visit Provider Internal Medicine
DX: R53.81 Other malaise (principal); I10 Essential (primary) hypertension; E11.9 Type 2 diabetes mellitus without complications; F03.90 Unspecified dementia, unspecified severity, without behavioral disturbance, psychotic disturbance, mood disturbance, and anxiety; Z91.81 History of falling; Z79.84 Long term (current) use of oral hypoglycemic drugs
CPT/HCPCS: 36415; 36416; 71045; 73502; 80053; 81003; 82962; 83880; 84443; 85025; 87635; 96372; 96374; 97116; 97161; 99285; G0378; J1630; J1815; J2060